=== PATIENT | male | born 1960 | race Caucasian/White ===

== ENCOUNTER → 2017-08-21 | Outpatient (CLI) | payer OTHER ==
[~2017-08-21] MED LIST: (None)15 GM EXT; CAND4; CEPH500; CIPR250; CLON.5 PO; HYDACE5; HYDACE5 PO; IBUP800 PO; LANS15EC; LOSA50 PO; LOSARTAN POTAS100 MG PO; META800 PO; NAPR550 PO; NEBI10 PO; NEBI5; OXYACE10 PO; PRAM.5; PRAM.5 PO; ROPI1; TAMS.4ER; TAMS.4ER PO; Zovirax200 MG PO; [UNRECOGNIZED DRUG - REMARK]; [UNRECOGNIZED DRUG - REMARK]
[2017-08-21 16:58] LABS: BASOPHILS ABSOLUTE AUTO 0.03 K/mm3 (0.00-0.23); BASOPHILS PERCENT AUTO 0 % (0-2); EOSINOPHILS ABSOLUTE AUTO 0.25 K/mm3 (0.00-0.68); EOSINOPHILS PERCENT AUTO 3 % (0-6); Hematocrit 39.1 % (37.0-53.0); Hemoglobin 12.7 g/dL (13.5-17.5); IMMATURE GRAN ABSOLUTE AUTO 0.09 K/mm3 (0.00-0.10); IMMATURE GRAN PERCENT AUTO 1 % (0-1); LYMPHOCYTES ABSOLUTE AUTO 1.69 K/mm3 (0.84-5.20); LYMPHOCYTES PERCENT AUTO 23 % (21-46); MONOCYTES ABSOLUTE AUTO 0.44 K/mm3 (0.16-1.47); MONOCYTES PERCENT AUTO 6 % (4-13); Mean Corpuscular HGB 29.3 pg (26.0-34.0); Mean Corpuscular HGB Conc 32.5 g/dL (31.5-36.5); Mean Corpuscular Volume 90 fL (80-100); Mean Platelet Volume 9.4 fL (9.1-12.4); NEUTROPHILS ABSOLUTE AUTO 4.89 K/mm3 (1.96-9.15); NEUTROPHILS PERCENT AUTO 66 % (41-73); Platelet Count 261 K/mm3 (150-400); RDW Coefficient Variation 13.2 % (11.7-14.2); RDW Standard Deviation 43.6 fL (35.1-46.3); Red Blood Cell Count 4.33 M/mm3 (4.30-5.90); White Blood Cell Count 7.39 K/mm3 (4.00-11.30)
[2017-08-21 17:32] LABS: Alanine Aminotransfer (ALT/SGP 40 U/L (12-78); Albumin, Blood 3.3 g/dL (3.4-5.0); Albumin/Globulin Ratio 0.7 (0.8-1.8); Alk Phos 89 U/L (50-136); Anion Gap 8 mmol/L (6-16); Aspartate Aminotrans (AST/SGOT 29 U/L (12-37); Bilirubin, Total 0.7 mg/dL (0.1-1.0); Blood Urea Nitrogen 16 mg/dL (8-24); Bun/Creatinine Ratio 16.6 (12.0-20.0); CO2, Blood 27 mmol/L (21-32); Calcium, Blood 9.3 mg/dL (8.5-10.1); Chloride, Blood 103 mmol/L (98-108); Creatinine, Blood 0.96 mg/dL (0.60-1.20); Globulin, Blood 4.8 g/dL (2.2-4.0); Glomerular Filtration Rate >60 (60-); Glucose, Blood 165 mg/dL (70-99); Potassium, Blood 3.7 mmol/L (3.5-5.5); Sodium, Blood 138 mmol/L (136-145); Total Protein, Blood 8.1 g/dL (6.4-8.2)
== END ==
LOC: LAB 16:30
PROVIDERS: Nurse Practitioner
DX: L03.115 Cellulitis of right lower limb (principal)
CPT/HCPCS: 80053; 85025

== ENCOUNTER 2017-09-04 21:04 | Emergency (ER) | payer OTHER ==
[~2017-09-04] VITALS: Ht 190.5 cm; Wt 131.5 kg
[~2017-09-04 21:04] MED LIST changes: -CEPH500; -CLON.5 PO; -LOSA50 PO; -LOSARTAN POTAS100 MG PO; -NEBI10 PO; -PRAM.5; -PRAM.5 PO; -TAMS.4ER PO
[2017-09-04 22:40] LABS: Source, Urine Catheter
[2017-09-04 22:48] LABS: Bilirubin, Urine Neg (Neg); Blood, Urine 2+ (Neg); Glucose Qualitative, Urine Neg (Neg); Ketones, Urine Neg (Neg); Leukocyte Esterase, Urine Neg (Neg); Nitrite, Urine Neg (Neg); Protein, Urine Neg (Neg); Specific Gravity, Urine 1.015 (1.003-1.022); Urobilinogen, Urine NORM (Normal)
[2017-09-04 22:50] LABS: Appearance, Urine Clear (Clear); Color, Urine Yellow (P-Yellow)
[2017-09-04 22:55] LABS: Amorphous Light (0-Heavy); Bacteria Not Seen /hpf; Red Blood Cells, Urine 0-2 /hpf (0-2); Squamous Epithelial Cells Not Seen /hpf (Few); White Blood Cells, Urine Not Seen /hpf (0-5)
[2018-01-16] MEDS ORDERED: NEBI10 PO (18:14)
[2018-01-16] MEDS ORDERED: LOSARTAN POTAS100 MG PO (18:14)
[2018-01-16] MEDS ORDERED: PRAM.5 PO (18:14)
[2018-01-20] MEDS ORDERED: NEBI10 PO (09:27)
[2018-01-20] MEDS ORDERED: LOSA50 PO (09:31)
[2018-01-20] MEDS ORDERED: PRAM.5 (09:41)
[2018-01-20] MEDS ORDERED: TAMS.4ER PO (09:44)
[2018-01-20] MEDS ORDERED: CEPH500 (09:45)
== END 2017-09-04 23:08 | disposition home or self-care (01) ==
LOC: ER 21:04
PROVIDERS: Physician Assistant
DX: R33.9 Retention of urine, unspecified (principal); Z88.1 Allergy status to other antibiotic agents; Z88.6 Allergy status to analgesic agent; Z79.899 Other long term (current) drug therapy
CPT/HCPCS: 51702; 51798; 81001; 99283

== ENCOUNTER 2017-09-11 00:11 | Day surgery (SDC) | payer OTHER ==
[2018-01-16] MEDS ORDERED: NEBI10 PO (18:14)
[2018-01-16] MEDS ORDERED: PRAM.5 PO (18:14)
[2018-01-16] MEDS ORDERED: LOSARTAN POTAS100 MG PO (18:14)
[2018-01-20] MEDS ORDERED: NEBI10 PO (09:27)
[2018-01-20] MEDS ORDERED: LOSA50 PO (09:31)
[2018-01-20] MEDS ORDERED: PRAM.5 (09:41)
[2018-01-20] MEDS ORDERED: TAMS.4ER PO (09:44)
[2018-01-20] MEDS ORDERED: CEPH500 (09:45)
== END 2017-09-11 15:53 | disposition home or self-care (01) ==
LOC: WOUND 00:11
DX: Z48.00 Encounter for change or removal of nonsurgical wound dressing (principal); L89.892 Pressure ulcer of other site, stage 2; R60.0 Localized edema; G25.81 Restless legs syndrome; I10 Essential (primary) hypertension; G47.33 Obstructive sleep apnea (adult) (pediatric); K76.9 Liver disease, unspecified; G60.9 Hereditary and idiopathic neuropathy, unspecified; I87.8 Other specified disorders of veins; Z88.6 Allergy status to analgesic agent; Z88.1 Allergy status to other antibiotic agents; Z88.8 Allergy status to other drugs, medicaments and biological substances
CPT/HCPCS: G0463

== ENCOUNTER 2017-09-17 00:46 | Day surgery (SDC) | payer OTHER | END 2017-09-17 22:55 | disposition home or self-care (01) | LOC: WOUND 00:46 | DX: L89.893 Pressure ulcer of other site, stage 3 (principal); I10 Essential (primary) hypertension; G47.33 Obstructive sleep apnea (adult) (pediatric); K76.9 Liver disease, unspecified; G60.9 Hereditary and idiopathic neuropathy, unspecified; I87.8 Other specified disorders of veins; R60.0 Localized edema | CPT/HCPCS: 87070; 87075; 87077; 87147; 87186; 87205; G0463 ==

== ENCOUNTER 2017-09-24 01:16 | Day surgery (SDC) | payer OTHER | END 2017-09-24 10:12 | disposition home or self-care (01) | LOC: WOUND 01:16 | PROC: 0HBMXZZ Excision of Right Foot Skin, External Approach (ICD-10-PCS; principal; 2017-09-24) | DX: L89.893 Pressure ulcer of other site, stage 3 (principal); I10 Essential (primary) hypertension; G47.33 Obstructive sleep apnea (adult) (pediatric); K76.9 Liver disease, unspecified; G60.9 Hereditary and idiopathic neuropathy, unspecified; I87.8 Other specified disorders of veins; R60.0 Localized edema | CPT/HCPCS: G0463 ==

== ENCOUNTER 2017-10-01 08:29 | Day surgery (SDC) | payer OTHER | END 2017-10-01 22:44 | disposition home or self-care (01) | LOC: WOUND 08:29 | PROC: 0HBMXZZ Excision of Right Foot Skin, External Approach (ICD-10-PCS; principal; 2017-10-01) | PROC: 2W1SX6Z Compression of Right Foot using Pressure Dressing (ICD-10-PCS; principal; 2017-10-01) | DX: L89.893 Pressure ulcer of other site, stage 3 (principal); I10 Essential (primary) hypertension; G47.33 Obstructive sleep apnea (adult) (pediatric); K76.9 Liver disease, unspecified; G60.9 Hereditary and idiopathic neuropathy, unspecified; I87.8 Other specified disorders of veins; R60.0 Localized edema | CPT/HCPCS: G0463 ==

== ENCOUNTER 2017-10-15 00:13 | Day surgery (SDC) | payer OTHER | END 2017-10-15 15:44 | disposition home or self-care (01) | LOC: WOUND 00:13 | PROC: 2W1SX6Z Compression of Right Foot using Pressure Dressing (ICD-10-PCS; principal; 2017-10-15) | PROC: 0HBMXZZ Excision of Right Foot Skin, External Approach (ICD-10-PCS; principal; 2017-10-15) | DX: L89.893 Pressure ulcer of other site, stage 3 (principal); I10 Essential (primary) hypertension; G47.33 Obstructive sleep apnea (adult) (pediatric); K76.9 Liver disease, unspecified; G60.9 Hereditary and idiopathic neuropathy, unspecified; I87.8 Other specified disorders of veins; R60.0 Localized edema | CPT/HCPCS: G0463 ==

== ENCOUNTER 2017-10-22 00:03 | Day surgery (SDC) | payer OTHER | END 2017-10-22 11:37 | disposition home or self-care (01) | LOC: WOUND 00:03 | PROC: 2W1SX6Z Compression of Right Foot using Pressure Dressing (ICD-10-PCS; principal; 2017-10-22) | DX: L89.893 Pressure ulcer of other site, stage 3 (principal); G47.33 Obstructive sleep apnea (adult) (pediatric); I10 Essential (primary) hypertension; K76.9 Liver disease, unspecified; G60.9 Hereditary and idiopathic neuropathy, unspecified; I87.8 Other specified disorders of veins; R60.0 Localized edema | CPT/HCPCS: G0463 ==

== ENCOUNTER 2017-10-29 08:45 | Day surgery (SDC) | payer OTHER | END 2017-10-29 11:24 | disposition home or self-care (01) | LOC: WOUND 08:45 | DX: Z48.00 Encounter for change or removal of nonsurgical wound dressing (principal); L89.892 Pressure ulcer of other site, stage 2; I10 Essential (primary) hypertension; G47.33 Obstructive sleep apnea (adult) (pediatric); K76.9 Liver disease, unspecified; G60.9 Hereditary and idiopathic neuropathy, unspecified; I87.8 Other specified disorders of veins; R60.0 Localized edema | CPT/HCPCS: G0463 ==

== ENCOUNTER 2017-11-02 07:36 | Day surgery (SDC) | payer OTHER | END 2017-11-02 22:56 | disposition home or self-care (01) | LOC: WOUND 07:36 | PROC: 0HBMXZZ Excision of Right Foot Skin, External Approach (ICD-10-PCS; principal; 2017-11-02) | DX: L89.893 Pressure ulcer of other site, stage 3 (principal); G62.9 Polyneuropathy, unspecified; I10 Essential (primary) hypertension; G47.33 Obstructive sleep apnea (adult) (pediatric); K76.9 Liver disease, unspecified; G60.9 Hereditary and idiopathic neuropathy, unspecified; I87.8 Other specified disorders of veins; R60.0 Localized edema | CPT/HCPCS: G0463 ==

== ENCOUNTER 2017-11-09 08:41 | Day surgery (SDC) | payer OTHER | END 2017-11-09 11:23 | disposition home or self-care (01) | LOC: WOUND 08:41 | PROC: 2W1SX6Z Compression of Right Foot using Pressure Dressing (ICD-10-PCS; principal; 2017-11-09) | DX: L89.893 Pressure ulcer of other site, stage 3 (principal); I10 Essential (primary) hypertension; G47.33 Obstructive sleep apnea (adult) (pediatric); K76.9 Liver disease, unspecified; G60.9 Hereditary and idiopathic neuropathy, unspecified; I87.8 Other specified disorders of veins; R60.0 Localized edema ==

== ENCOUNTER 2018-06-06 07:10 | Emergency (ER) | payer MEDICAID ==
[~2018-06-06] VITALS: Ht 190.5 cm; Wt 136.1 kg
[~2018-06-06 07:10] MED LIST changes: +CEPH500; +LOSA50 PO; +LOSARTAN POTAS100 MG PO; +NEBI10 PO; +PRAM.5; +PRAM.5 PO; +TAMS.4ER PO
[2018-06-06] MEDS ORDERED: CLON.5 PO (07:29)
[2018-06-06 08:30] LABS: Source, Urine Voided
[2018-06-06 08:34] LABS: Bilirubin, Urine Neg (Neg); Blood, Urine 5+ (Neg); Glucose Qualitative, Urine Neg (Neg); Ketones, Urine Neg (Neg); Leukocyte Esterase, Urine Neg (Neg); Nitrite, Urine Neg (Neg); Protein, Urine Neg (Neg); Urobilinogen, Urine NORM (Normal)
[2018-06-06 08:43] LABS: Appearance, Urine Clear (Clear); Color, Urine Yellow (P-Yellow)
[2018-06-06 08:44] LABS: White Blood Cells, Urine 0-2 /hpf (0-5)
[2018-06-06 08:45] LABS: Red Blood Cells, Urine 25-50 /hpf (0-2)
[2018-06-06 08:47] LABS: Bacteria Not Seen /hpf; Squamous Epithelial Cells Not Seen /hpf (Few)
== END 2018-06-06 10:20 | disposition home or self-care (01) ==
LOC: ER 07:10
PROVIDERS: Emergency Medicine
DX: N40.1 Benign prostatic hyperplasia with lower urinary tract symptoms (principal); R33.8 Other retention of urine; I10 Essential (primary) hypertension; Z88.5 Allergy status to narcotic agent; Z88.6 Allergy status to analgesic agent; Z88.1 Allergy status to other antibiotic agents; Z79.899 Other long term (current) drug therapy
CPT/HCPCS: 51702; 81001; 99283

== ENCOUNTER → 2018-09-22 | Outpatient (CLI) | payer SELFPAY ==
[~2018-09-22] MED LIST changes: +CLON.5 PO
== END | disposition home or self-care (01) ==
LOC: LAB 16:35 → LAB SHORT 16:35
DX: L97.519 Non-pressure chronic ulcer of other part of right foot with unspecified severity (principal); I87.2 Venous insufficiency (chronic) (peripheral); L08.9 Local infection of the skin and subcutaneous tissue, unspecified; R60.0 Localized edema
CPT/HCPCS: 87070; 87077; 87147; 87186; 87205

== ENCOUNTER → 2019-01-12 | Outpatient (CLI) | payer OTHER ==
[~2019-01-12] MED LIST changes: +Bactrim Ds Tab1 EACH PO; +CLIN300 PO; -PRAM.5
== END | disposition home or self-care (01) ==
LOC: LAB SHORT 18:25 → LAB 18:25
DX: D48.5 Neoplasm of uncertain behavior of skin (principal)
CPT/HCPCS: 87015; 87071; 87075; 87077; 87102; 87106; 87116; 87186; 87205; 87206

== ENCOUNTER 2019-03-25 15:46 | Day surgery (SDC) | payer OTHER ==
[~2019-03-25 15:46] MED LIST changes: -Bactrim Ds Tab1 EACH PO; -CLIN300 PO
[2019-03-25] MEDS ORDERED: CLIN300 PO (16:11)
== END 2019-03-25 16:36 | disposition home or self-care (01) ==
LOC: ATC 15:46
DX: M86.371 Chronic multifocal osteomyelitis, right ankle and foot (principal); L97.515 Non-pressure chronic ulcer of other part of right foot with muscle involvement without evidence of necrosis; I10 Essential (primary) hypertension; Z87.891 Personal history of nicotine dependence; Z79.899 Other long term (current) drug therapy; Z88.8 Allergy status to other drugs, medicaments and biological substances; Z88.5 Allergy status to narcotic agent; Z88.6 Allergy status to analgesic agent
CPT/HCPCS: 87070; 87077; 87147; 87186; 87205; 96365; J0696

== ENCOUNTER 2019-03-26 01:00 | Day surgery (SDC) | payer OTHER ==
[~2019-03-26 01:00] MED LIST changes: +CLIN300 PO
[2019-03-27] MEDS ORDERED: Bactrim Ds Tab1 EACH PO (19:14)
== END 2019-03-26 16:02 | disposition home or self-care (01) ==
LOC: ATC 01:00
DX: M86.371 Chronic multifocal osteomyelitis, right ankle and foot (principal); L97.515 Non-pressure chronic ulcer of other part of right foot with muscle involvement without evidence of necrosis; I10 Essential (primary) hypertension; Z87.891 Personal history of nicotine dependence; Z79.899 Other long term (current) drug therapy; Z88.8 Allergy status to other drugs, medicaments and biological substances; Z88.1 Allergy status to other antibiotic agents; Z88.5 Allergy status to narcotic agent
CPT/HCPCS: 96365; J0696

== ENCOUNTER 2019-03-27 01:10 | Day surgery (SDC) | payer OTHER ==
[2019-03-27] MEDS ORDERED: Bactrim Ds Tab1 EACH PO (19:14)
--- NOTE | 2019-03-27 19:17 | NUR ---
PT REPORTS RESTLESS LEGS, NOT RELIEVED BY ANY "OF THE MEDS IM TAKING". UP AMB IN ROOM, REPORTS THIS IS WHAT HELPS THE MOST. CALL LIGHT WITHIN REACH.
== END 2019-03-27 22:38 | disposition home or self-care (01) ==
LOC: ATC 01:10
DX: M86.371 Chronic multifocal osteomyelitis, right ankle and foot (principal); L97.515 Non-pressure chronic ulcer of other part of right foot with muscle involvement without evidence of necrosis; I10 Essential (primary) hypertension; R73.03 Prediabetes; Z87.891 Personal history of nicotine dependence; Z79.899 Other long term (current) drug therapy; Z79.84 Long term (current) use of oral hypoglycemic drugs; Z88.1 Allergy status to other antibiotic agents; Z88.5 Allergy status to narcotic agent; Z88.8 Allergy status to other drugs, medicaments and biological substances
CPT/HCPCS: 96365; J0696

== ENCOUNTER 2019-03-29 16:20 | Emergency (ER) | payer OTHER ==
[~2019-03-29] VITALS: Ht 190.5 cm; Wt 133.8 kg
[~2019-03-29 16:20] MED LIST changes: +Bactrim Ds Tab1 EACH PO
[2019-03-29 17:16] LABS: BASOPHILS ABSOLUTE AUTO 0.06 K/mm3 (0.00-0.23); BASOPHILS PERCENT AUTO 1 % (0-2); EOSINOPHILS ABSOLUTE AUTO 0.23 K/mm3 (0.00-0.68); EOSINOPHILS PERCENT AUTO 3 % (0-6); Hematocrit 42.2 % (37.0-53.0); Hemoglobin 13.9 g/dL (13.5-17.5); IMMATURE GRAN ABSOLUTE AUTO 0.14 K/mm3 (0.00-0.10); IMMATURE GRAN PERCENT AUTO 2 % (0-1); LYMPHOCYTES ABSOLUTE AUTO 2.11 K/mm3 (0.84-5.20); LYMPHOCYTES PERCENT AUTO 25 % (21-46); MONOCYTES ABSOLUTE AUTO 0.51 K/mm3 (0.16-1.47); MONOCYTES PERCENT AUTO 6 % (4-13); Mean Corpuscular HGB 30.1 pg (26.0-34.0); Mean Corpuscular HGB Conc 32.9 g/dL (31.5-36.5); Mean Corpuscular Volume 91 fL (80-100); Mean Platelet Volume 9.3 fL (9.1-12.4); NEUTROPHILS ABSOLUTE AUTO 5.45 K/mm3 (1.96-9.15); NEUTROPHILS PERCENT AUTO 64 % (41-73); Platelet Count 323 K/mm3 (150-400); RDW Coefficient Variation 13.5 % (11.7-14.2); RDW Standard Deviation 45.4 fL (35.1-46.3); Red Blood Cell Count 4.62 M/mm3 (4.30-5.90)
[2019-03-29 18:46] LABS: Anion Gap 2 mmol/L (6-16); Blood Urea Nitrogen 15 mg/dL (8-24); Bun/Creatinine Ratio 13.3 (12.0-20.0); CO2, Blood 29 mmol/L (21-32); Calcium, Blood 9.2 mg/dL (8.5-10.1); Chloride, Blood 105 mmol/L (98-108); Creatinine, Blood 1.13 mg/dL (0.60-1.20); Glomerular Filtration Rate >60 (60-); Glucose, Blood 99 mg/dL (70-99); Potassium, Blood 4.2 mmol/L (3.5-5.5); Sodium, Blood 136 mmol/L (136-145)
== END 2019-03-29 21:46 | disposition home or self-care (01) ==
LOC: ER 16:20
PROVIDERS: Physician Assistant
DX: L89.619 Pressure ulcer of right heel, unspecified stage (principal); L03.115 Cellulitis of right lower limb; M86.9 Osteomyelitis, unspecified; I10 Essential (primary) hypertension; Z88.8 Allergy status to other drugs, medicaments and biological substances; Z88.1 Allergy status to other antibiotic agents; Z79.899 Other long term (current) drug therapy
CPT/HCPCS: 36415; 73630; 80048; 85025; 99283-25

== ENCOUNTER → 2019-04-04 | Outpatient (CLI) | payer OTHER | END | disposition home or self-care (01) | LOC: PLD 07:32 → LAB SHORT 07:32 | DX: B99.9 Unspecified infectious disease (principal); E11.621 Type 2 diabetes mellitus with foot ulcer; E11.65 Type 2 diabetes mellitus with hyperglycemia; L03.115 Cellulitis of right lower limb; L97.519 Non-pressure chronic ulcer of other part of right foot with unspecified severity | CPT/HCPCS: 87070; 87075; 87077; 87186; 87205; 88305; 88311 ==

== ENCOUNTER → 2020-05-19 | Outpatient (CLI) | payer OTHER ==
[~2020-05-19] MED LIST changes: +CEFP200 PO; +Norco 5-325 Ta1 EACH PO
== END | disposition home or self-care (01) ==
LOC: LAB 17:00
DX: N40.1 Benign prostatic hyperplasia with lower urinary tract symptoms (principal); R33.8 Other retention of urine
CPT/HCPCS: 87086

== ENCOUNTER 2020-07-16 19:34 | Emergency (ER) | payer OTHER ==
[~2020-07-16] VITALS: Ht 190.5 cm; Wt 133.8 kg
[~2020-07-16 19:34] MED LIST changes: -CEFP200 PO; -Norco 5-325 Ta1 EACH PO
[2020-07-16 20:49] LABS: Source, Urine Catheter
[2020-07-16 20:54] LABS: Appearance, Urine Cloudy (Clear); Bilirubin, Urine Neg (Neg); Blood, Urine 3+ (Neg); Color, Urine Yellow (P-Yellow); Glucose Qualitative, Urine Neg (Neg); Ketones, Urine Neg (Neg); Leukocyte Esterase, Urine 3+ (Neg); Nitrite, Urine Neg (Neg); Protein, Urine 2+ (Neg); Specific Gravity, Urine 1.015 (1.003-1.022); Urobilinogen, Urine NORM (Normal)
[2020-07-16 21:02] LABS: Bacteria Many /hpf; Squamous Epithelial Cells Not Seen /hpf (Few); White Blood Cells, Urine 50-100 /hpf (0-5)
[2020-07-16] MEDS ORDERED: CEFP200 PO (21:45)
== END 2020-07-16 21:45 | disposition home or self-care (01) ==
LOC: ER 19:34
PROVIDERS: Physician Assistant
DX: N39.0 Urinary tract infection, site not specified (principal); N40.0 Benign prostatic hyperplasia without lower urinary tract symptoms; I10 Essential (primary) hypertension; Z88.6 Allergy status to analgesic agent; Z88.8 Allergy status to other drugs, medicaments and biological substances; Z88.1 Allergy status to other antibiotic agents; Z79.899 Other long term (current) drug therapy
CPT/HCPCS: 51702; 81001; 87077; 87086; 87186; 99283-25; A9270

== ENCOUNTER 2020-12-10 10:22 | Emergency (ER) | payer OTHER ==
[~2020-12-10] VITALS: Ht 190.5 cm; Wt 133.8 kg
[~2020-12-10 10:22] MED LIST changes: +CEFP200 PO
[2020-12-10 11:16] LABS: Source, Urine Catheter
[2020-12-10 11:26] LABS: Bilirubin, Urine Neg (Neg); Blood, Urine 5+ (Neg); Glucose Qualitative, Urine 2+ (Neg); Ketones, Urine Neg (Neg); Leukocyte Esterase, Urine 1+ (Neg); Nitrite, Urine Neg (Neg); Protein, Urine 2+ (Neg); Urobilinogen, Urine NORM (Normal)
[2020-12-10 11:33] LABS: Appearance, Urine Hazy (Clear); Color, Urine Red (P-Yellow)
[2020-12-10 11:34] LABS: Bacteria Few /hpf; Squamous Epithelial Cells Not Seen /hpf (Few); White Blood Cells, Urine TNTC /hpf (0-5)
[2020-12-10] MEDS ORDERED: Norco 5-325 Ta1 EACH PO (13:32)
== END 2020-12-10 14:18 | disposition home or self-care (01) ==
LOC: ER 10:22
PROVIDERS: Physician Assistant
DX: M25.551 Pain in right hip (principal); I10 Essential (primary) hypertension; Z88.5 Allergy status to narcotic agent; Z88.2 Allergy status to sulfonamides; Z88.1 Allergy status to other antibiotic agents; Z79.899 Other long term (current) drug therapy
CPT/HCPCS: 51702; 51798; 73502; 74176; 81001; 87086; 96374-59; 99284-25; J1885

== ENCOUNTER → 2020-12-30 | Outpatient (CLI) | payer OTHER ==
[~2020-12-30] MED LIST changes: +Norco 5-325 Ta1 EACH PO
[2020-12-30 17:06] LABS: BASOPHILS ABSOLUTE AUTO 0.05 K/mm3 (0.00-0.23); BASOPHILS PERCENT AUTO 1 % (0-2); EOSINOPHILS ABSOLUTE AUTO 0.18 K/mm3 (0.00-0.68); EOSINOPHILS PERCENT AUTO 3 % (0-6); Hematocrit 43.3 % (37.0-53.0); Hemoglobin 14.4 g/dL (13.5-17.5); IMMATURE GRAN ABSOLUTE AUTO 0.01 K/mm3 (0.00-0.10); IMMATURE GRAN PERCENT AUTO 0 % (0-1); LYMPHOCYTES ABSOLUTE AUTO 2.18 K/mm3 (0.84-5.20); LYMPHOCYTES PERCENT AUTO 31 % (21-46); MONOCYTES ABSOLUTE AUTO 0.48 K/mm3 (0.16-1.47); MONOCYTES PERCENT AUTO 7 % (4-13); Mean Corpuscular HGB 30.3 pg (26.0-34.0); Mean Corpuscular HGB Conc 33.3 g/dL (31.5-36.5); Mean Corpuscular Volume 91 fL (80-100); Mean Platelet Volume 9.9 fL (9.1-12.4); NEUTROPHILS ABSOLUTE AUTO 4.14 K/mm3 (1.96-9.15); NEUTROPHILS PERCENT AUTO 59 % (41-73); Platelet Count 261 K/mm3 (150-400); RDW Coefficient Variation 13.5 % (11.7-14.2); RDW Standard Deviation 45.1 fL (35.1-46.3); Red Blood Cell Count 4.76 M/mm3 (4.30-5.90); White Blood Cell Count 7.04 K/mm3 (4.00-11.30)
[2020-12-30 17:27] LABS: Anion Gap 4 mmol/L (6-16); Blood Urea Nitrogen 18 mg/dL (8-24); Bun/Creatinine Ratio 21.1 (12.0-20.0); CO2, Blood 27 mmol/L (21-32); Calcium, Blood 9.2 mg/dL (8.5-10.1); Chloride, Blood 106 mmol/L (98-108); Creatinine, Blood 0.85 mg/dL (0.60-1.20); Glomerular Filtration Rate >60 (60-); Glucose, Blood 143 mg/dL (70-99); Potassium, Blood 3.6 mmol/L (3.5-5.5); Sodium, Blood 137 mmol/L (136-145)
== END | disposition home or self-care (01) ==
LOC: LAB 16:00 → LAB SHORT 16:00
PROVIDERS: Physician Assistant
DX: Z01.818 Encounter for other preprocedural examination (principal); S90.821A Blister (nonthermal), right foot, initial encounter; T14.8XXD Other injury of unspecified body region, subsequent encounter; M20.42 Other hammer toe(s) (acquired), left foot; M20.41 Other hammer toe(s) (acquired), right foot; I10 Essential (primary) hypertension; L97.513 Non-pressure chronic ulcer of other part of right foot with necrosis of muscle
CPT/HCPCS: 80048; 85025

== ENCOUNTER → 2020-12-31 | Outpatient (CLI) | payer OTHER | LOC: LAB 13:16 → LAB SHORT 13:16 | DX: L97.514 Non-pressure chronic ulcer of other part of right foot with necrosis of bone (principal) | CPT/HCPCS: 88307 ==

== ENCOUNTER 2021-04-24 06:35 | Emergency (ER) | payer OTHER ==
[~2021-04-24] VITALS: Ht 190.5 cm; Wt 133.8 kg
[2021-04-24 07:55] LABS: BASOPHILS ABSOLUTE AUTO 0.04 K/mm3 (0.00-0.23); BASOPHILS PERCENT AUTO 1 % (0-2); EOSINOPHILS ABSOLUTE AUTO 0.09 K/mm3 (0.00-0.68); EOSINOPHILS PERCENT AUTO 1 % (0-6); Hematocrit 43.9 % (37.0-53.0); Hemoglobin 15.1 g/dL (13.5-17.5); IMMATURE GRAN ABSOLUTE AUTO 0.03 K/mm3 (0.00-0.10); IMMATURE GRAN PERCENT AUTO 0 % (0-1); LYMPHOCYTES ABSOLUTE AUTO 1.17 K/mm3 (0.84-5.20); LYMPHOCYTES PERCENT AUTO 17 % (21-46); MONOCYTES ABSOLUTE AUTO 0.36 K/mm3 (0.16-1.47); MONOCYTES PERCENT AUTO 5 % (4-13); Mean Corpuscular HGB 30.6 pg (26.0-34.0); Mean Corpuscular HGB Conc 34.4 g/dL (31.5-36.5); Mean Corpuscular Volume 89 fL (80-100); Mean Platelet Volume 9.1 fL (9.1-12.4); NEUTROPHILS ABSOLUTE AUTO 5.07 K/mm3 (1.96-9.15); NEUTROPHILS PERCENT AUTO 75 % (41-73); Platelet Count 222 K/mm3 (150-400); RDW Coefficient Variation 13.1 % (11.7-14.2); RDW Standard Deviation 42.3 fL (35.1-46.3); Red Blood Cell Count 4.94 M/mm3 (4.30-5.90); White Blood Cell Count 6.76 K/mm3 (4.00-11.30)
[2021-04-24 07:57] LABS: Source, Urine Catheter
[2021-04-24 07:59] LABS: Appearance, Urine Clear (Clear); Bilirubin, Urine Neg (Neg); Blood, Urine 3+ (Neg); Color, Urine Yellow (P-Yellow); Glucose Qualitative, Urine Neg (Neg); Ketones, Urine Neg (Neg); Leukocyte Esterase, Urine Neg (Neg); Nitrite, Urine Neg (Neg); Protein, Urine 1+ (Neg); Urobilinogen, Urine NORM (Normal)
[2021-04-24 08:07] LABS: White Blood Cells, Urine 0-2 /hpf (0-5)
[2021-04-24 08:08] LABS: Bacteria Not Seen /hpf; Mucus Light (0-Heavy); Squamous Epithelial Cells Rare /hpf (Few)
[2021-04-24 08:17] LABS: Alanine Aminotransfer (ALT/SGP 44 U/L (12-78); Albumin, Blood 3.5 g/dL (3.4-5.0); Albumin/Globulin Ratio 0.9 (0.8-1.8); Alk Phos 75 U/L (50-136); Anion Gap 7 mmol/L (6-16); Aspartate Aminotrans (AST/SGOT 30 U/L (12-37); Bilirubin, Total 1.1 mg/dL (0.1-1.0); Blood Urea Nitrogen 17 mg/dL (8-24); Bun/Creatinine Ratio 20.9 (12.0-20.0); CO2, Blood 27 mmol/L (21-32); Calcium, Blood 9.6 mg/dL (8.5-10.1); Chloride, Blood 101 mmol/L (98-108); Creatinine, Blood 0.82 mg/dL (0.60-1.20); Glomerular Filtration Rate >60 (60-); Glucose, Blood 171 mg/dL (70-99); Potassium, Blood 3.6 mmol/L (3.5-5.5); Sodium, Blood 135 mmol/L (136-145); Total Protein, Blood 7.5 g/dL (6.4-8.2)
[2021-04-24] MEDS ORDERED: Bactrim Ds Tab1 EACH PO (09:04)
== END 2021-04-24 09:33 | disposition home or self-care (01) ==
LOC: ER 06:35
PROVIDERS: Emergency Medicine
DX: R33.9 Retention of urine, unspecified (principal); Z88.1 Allergy status to other antibiotic agents; Z88.6 Allergy status to analgesic agent; Z88.8 Allergy status to other drugs, medicaments and biological substances; Z79.899 Other long term (current) drug therapy
CPT/HCPCS: 36415; 51702; 80053; 81001; 85025; 99283-25; A9270

== ENCOUNTER 2021-05-24 01:36 | Day surgery (SDC) | payer OTHER | END 2021-05-24 12:00 | disposition home or self-care (01) | LOC: WOUND 01:36 | DX: L89.894 Pressure ulcer of other site, stage 4 (principal); L97.512 Non-pressure chronic ulcer of other part of right foot with fat layer exposed; T14.8XXD Other injury of unspecified body region, subsequent encounter; S98.131D Complete traumatic amputation of one right lesser toe, subsequent encounter; X58.XXXD Exposure to other specified factors, subsequent encounter; I70.213 Atherosclerosis of native arteries of extremities with intermittent claudication, bilateral legs; M21.371 Foot drop, right foot; I87.2 Venous insufficiency (chronic) (peripheral); I87.311 Chronic venous hypertension (idiopathic) with ulcer of right lower extremity; Z88.1 Allergy status to other antibiotic agents; Z88.6 Allergy status to analgesic agent; Z88.8 Allergy status to other drugs, medicaments and biological substances | CPT/HCPCS: A9270; G0463 ==

== ENCOUNTER 2021-06-07 04:55 | Day surgery (SDC) | payer OTHER | END 2021-06-07 23:55 | disposition home or self-care (01) | LOC: WOUND 04:55 | DX: L89.894 Pressure ulcer of other site, stage 4 (principal); T14.8XXD Other injury of unspecified body region, subsequent encounter; S98.131D Complete traumatic amputation of one right lesser toe, subsequent encounter; X58.XXXD Exposure to other specified factors, subsequent encounter; I70.213 Atherosclerosis of native arteries of extremities with intermittent claudication, bilateral legs; M21.371 Foot drop, right foot; M21.379 Foot drop, unspecified foot; M79.671 Pain in right foot; I87.2 Venous insufficiency (chronic) (peripheral); I87.311 Chronic venous hypertension (idiopathic) with ulcer of right lower extremity | CPT/HCPCS: A9270; G0463 ==

== ENCOUNTER 2021-09-18 08:57 | Emergency (ER) | payer OTHER ==
[~2021-09-18] VITALS: Ht 190.5 cm; Wt 131.0 kg
[2021-09-18 09:50] LABS: Source, Urine Foley catheter
[2021-09-18 09:56] LABS: Bilirubin, Urine Neg (Neg); Blood, Urine 3+ (Neg); Glucose Qualitative, Urine Neg (Neg); Ketones, Urine Neg (Neg); Leukocyte Esterase, Urine Neg (Neg); Nitrite, Urine Neg (Neg); Protein, Urine Neg (Neg); Specific Gravity, Urine 1.015 (1.003-1.022); Urobilinogen, Urine NORM (Normal)
[2021-09-18 10:28] LABS: BASOPHILS ABSOLUTE AUTO 0.04 K/mm3 (0.00-0.23); BASOPHILS PERCENT AUTO 1 % (0-2); EOSINOPHILS ABSOLUTE AUTO 0.07 K/mm3 (0.00-0.68); EOSINOPHILS PERCENT AUTO 1 % (0-6); Hemoglobin 14.8 g/dL (13.5-17.5); IMMATURE GRAN ABSOLUTE AUTO 0.02 K/mm3 (0.00-0.10); IMMATURE GRAN PERCENT AUTO 0 % (0-1); LYMPHOCYTES ABSOLUTE AUTO 1.05 K/mm3 (0.84-5.20); LYMPHOCYTES PERCENT AUTO 14 % (21-46); MONOCYTES ABSOLUTE AUTO 0.39 K/mm3 (0.16-1.47); MONOCYTES PERCENT AUTO 5 % (4-13); Mean Corpuscular HGB 30.3 pg (26.0-34.0); Mean Corpuscular HGB Conc 33.6 g/dL (31.5-36.5); Mean Corpuscular Volume 90 fL (80-100); Mean Platelet Volume 9.1 fL (9.1-12.4); NEUTROPHILS ABSOLUTE AUTO 6.09 K/mm3 (1.96-9.15); NEUTROPHILS PERCENT AUTO 80 % (41-73); Platelet Count 272 K/mm3 (150-400); RDW Coefficient Variation 12.5 % (11.7-14.2); RDW Standard Deviation 41.2 fL (35.1-46.3); Red Blood Cell Count 4.89 M/mm3 (4.30-5.90); White Blood Cell Count 7.66 K/mm3 (4.00-11.30)
[2021-09-18 10:37] LABS: Appearance, Urine Clear (Clear); Color, Urine Pale Yellow (P-Yellow)
[2021-09-18 10:39] LABS: Bacteria Rare /hpf; Mucus Light (0-Heavy); Squamous Epithelial Cells Not Seen /hpf (Few); White Blood Cells, Urine 0-2 /hpf (0-5)
[2021-09-18 11:58] LABS: Alanine Aminotransfer (ALT/SGP 28 U/L (12-78); Albumin, Blood 3.5 g/dL (3.4-5.0); Albumin/Globulin Ratio 0.8 (0.8-1.8); Alk Phos 75 U/L (50-136); Anion Gap 8 mmol/L (6-16); Aspartate Aminotrans (AST/SGOT 20 U/L (12-37); Bilirubin, Total 0.8 mg/dL (0.1-1.0); Blood Urea Nitrogen 13 mg/dL (8-24); Bun/Creatinine Ratio 15.3 (12.0-20.0); CO2, Blood 28 mmol/L (21-32); Calcium, Blood 9.4 mg/dL (8.5-10.1); Chloride, Blood 102 mmol/L (98-108); Creatinine, Blood 0.85 mg/dL (0.60-1.20); Globulin, Blood 4.6 g/dL (2.2-4.0); Glomerular Filtration Rate >60 (60-); Glucose, Blood 190 mg/dL (70-99); Potassium, Blood 3.5 mmol/L (3.5-5.5); Sodium, Blood 138 mmol/L (136-145); Total Protein, Blood 8.1 g/dL (6.4-8.2)
[2021-09-19] MEDS ORDERED: VANCOMYCIN HCL1 G1 IV (15:55)
== END 2021-09-18 16:02 | disposition home or self-care (01) ==
LOC: ER 08:57
PROVIDERS: Emergency Medicine
DX: R33.9 Retention of urine, unspecified (principal); E11.621 Type 2 diabetes mellitus with foot ulcer; L97.519 Non-pressure chronic ulcer of other part of right foot with unspecified severity; I10 Essential (primary) hypertension; Z79.899 Other long term (current) drug therapy
CPT/HCPCS: 36415; 51702; 51798; 73620; 80053; 81001; 85025; 96365; 96366; 99283-25; J3370; J7050

== ENCOUNTER 2021-09-19 13:14 | Day surgery (SDC) | payer OTHER ==
[~2021-09-19] VITALS: Ht 190.5 cm; Wt 131.1 kg
[2021-09-19] MEDS ORDERED: VANCOMYCIN HCL1 G1 IV (15:55)
== END 2021-09-19 17:40 | disposition home or self-care (01) ==
LOC: ATC 13:14
DX: E11.69 Type 2 diabetes mellitus with other specified complication (principal); M86.671 Other chronic osteomyelitis, right ankle and foot; E11.621 Type 2 diabetes mellitus with foot ulcer; L97.514 Non-pressure chronic ulcer of other part of right foot with necrosis of bone; L08.9 Local infection of the skin and subcutaneous tissue, unspecified; T14.8XXD Other injury of unspecified body region, subsequent encounter; I11.9 Hypertensive heart disease without heart failure; E11.51 Type 2 diabetes mellitus with diabetic peripheral angiopathy without gangrene; I70.213 Atherosclerosis of native arteries of extremities with intermittent claudication, bilateral legs; Z87.891 Personal history of nicotine dependence; Z88.8 Allergy status to other drugs, medicaments and biological substances; Z88.1 Allergy status to other antibiotic agents
CPT/HCPCS: 96365; 96366; C1751; J3370; J7050

== ENCOUNTER 2021-09-20 00:27 | Day surgery (SDC) | payer OTHER ==
[~2021-09-20] VITALS: Wt 131.5 kg
[~2021-09-20 00:27] MED LIST changes: +VANCOMYCIN HCL1 G1 IV
== END 2021-09-20 18:00 | disposition home or self-care (01) ==
LOC: ATC 00:27
DX: E11.69 Type 2 diabetes mellitus with other specified complication (principal); M86.671 Other chronic osteomyelitis, right ankle and foot; L08.9 Local infection of the skin and subcutaneous tissue, unspecified; T14.8XXD Other injury of unspecified body region, subsequent encounter; E11.621 Type 2 diabetes mellitus with foot ulcer; L97.514 Non-pressure chronic ulcer of other part of right foot with necrosis of bone; I10 Essential (primary) hypertension; Z88.8 Allergy status to other drugs, medicaments and biological substances; Z87.891 Personal history of nicotine dependence
CPT/HCPCS: J3370; J7050

== ENCOUNTER 2021-09-21 07:23 | Day surgery (SDC) | payer OTHER ==
[2021-09-21 08:06] LABS: Creatinine, Blood 0.99 mg/dL (0.60-1.20); Vancomycin, Trough 12.4 ug/mL (5.0-10.0)
--- NOTE | 2021-09-21 18:06 | NUR ---
CELIA COMPLETED AT 1749. MIDLINE FLUSHED + SALINE LOCKED. PT DENIED FURTHER NEEDS. WALKED OUT OF ROOM AT 1750.
== END 2021-09-21 17:50 | disposition home or self-care (01) ==
LOC: ATC 07:23
PROVIDERS: Student in an Organized Health Care Education/Training Program
DX: L08.9 Local infection of the skin and subcutaneous tissue, unspecified (principal); M86.671 Other chronic osteomyelitis, right ankle and foot; T14.8XXD Other injury of unspecified body region, subsequent encounter; E11.621 Type 2 diabetes mellitus with foot ulcer; L97.514 Non-pressure chronic ulcer of other part of right foot with necrosis of bone
CPT/HCPCS: 80202; 82565; J3370; J7050

== ENCOUNTER 2021-09-22 07:34 | Day surgery (SDC) | payer OTHER ==
--- NOTE | 2021-09-22 18:15 | NUR ---
DISCHARGED PT IV ABX COMPLETED AT 1809. HTN NOTED, PT REPORTING HE DID NOT TAKE HIS AM BP MEDS, ENCOURAGED COOPERATION WITH MEDICATION REGIMENT PER ORDERS. MIDLINE IV TO LUE FLUSHED WITH 20cc NS, STERILE CAP PLACED WITH NEW STOCKING TO HOLD IV LINE IN PLACE. PT HAD QUESTIONS REGARDING NEW ABX, PT ENCOURAGED TO CALL ATC UPON OPENING IN THE AM FOR CLARIFICATION. PT WHEELED OUT OF ROOM VIA WHEELCHAIR REPORTING INCREASED KNEE PAIN THIS PM BY AT 1812.
[2021-09-23] MEDS ORDERED: CUBICIN RF500 M1 IV (08:37)
== END 2021-09-22 18:13 | disposition home or self-care (01) ==
LOC: ATC 07:34
DX: E11.69 Type 2 diabetes mellitus with other specified complication (principal); M86.671 Other chronic osteomyelitis, right ankle and foot; L08.9 Local infection of the skin and subcutaneous tissue, unspecified; E11.621 Type 2 diabetes mellitus with foot ulcer; L97.514 Non-pressure chronic ulcer of other part of right foot with necrosis of bone; T14.8XXD Other injury of unspecified body region, subsequent encounter
CPT/HCPCS: J3370; J7050

== ENCOUNTER 2021-09-23 01:52 | Day surgery (SDC) | payer OTHER ==
[2021-09-23] MEDS ORDERED: CUBICIN RF500 M1 IV (08:37)
== END 2021-09-23 08:56 | disposition home or self-care (01) ==
LOC: ATC 01:52
DX: E11.69 Type 2 diabetes mellitus with other specified complication (principal); M86.671 Other chronic osteomyelitis, right ankle and foot; L08.9 Local infection of the skin and subcutaneous tissue, unspecified; T14.8XXD Other injury of unspecified body region, subsequent encounter; E11.621 Type 2 diabetes mellitus with foot ulcer; L97.514 Non-pressure chronic ulcer of other part of right foot with necrosis of bone
CPT/HCPCS: J0878

== ENCOUNTER 2021-09-25 01:23 | Day surgery (SDC) | payer OTHER ==
[~2021-09-25 01:23] MED LIST changes: +CUBICIN RF500 M1 IV
== END 2021-09-25 08:30 | disposition home or self-care (01) ==
LOC: ATC 01:23
DX: E11.69 Type 2 diabetes mellitus with other specified complication (principal); M86.671 Other chronic osteomyelitis, right ankle and foot; L08.9 Local infection of the skin and subcutaneous tissue, unspecified; T14.8XXD Other injury of unspecified body region, subsequent encounter; E11.621 Type 2 diabetes mellitus with foot ulcer; L97.514 Non-pressure chronic ulcer of other part of right foot with necrosis of bone
CPT/HCPCS: 96365; J0878

== ENCOUNTER 2021-09-26 00:58 | Day surgery (SDC) | payer OTHER | END 2021-09-26 09:29 | disposition home or self-care (01) | LOC: ATC 00:58 | DX: E11.69 Type 2 diabetes mellitus with other specified complication (principal); M86.671 Other chronic osteomyelitis, right ankle and foot; E11.621 Type 2 diabetes mellitus with foot ulcer; L97.514 Non-pressure chronic ulcer of other part of right foot with necrosis of bone; L08.9 Local infection of the skin and subcutaneous tissue, unspecified; T14.8XXD Other injury of unspecified body region, subsequent encounter | CPT/HCPCS: 96365; J0878 ==

== ENCOUNTER 2021-09-27 00:17 | Day surgery (SDC) | payer OTHER ==
[~2021-09-27] VITALS: Ht 190.5 cm; Wt 131.5 kg
== END 2021-09-27 08:45 | disposition home or self-care (01) ==
LOC: ATC 00:17
DX: E11.69 Type 2 diabetes mellitus with other specified complication (principal); M86.671 Other chronic osteomyelitis, right ankle and foot; L08.9 Local infection of the skin and subcutaneous tissue, unspecified; T14.8XXD Other injury of unspecified body region, subsequent encounter; E11.621 Type 2 diabetes mellitus with foot ulcer; L97.514 Non-pressure chronic ulcer of other part of right foot with necrosis of bone; I11.9 Hypertensive heart disease without heart failure; E11.51 Type 2 diabetes mellitus with diabetic peripheral angiopathy without gangrene; I70.213 Atherosclerosis of native arteries of extremities with intermittent claudication, bilateral legs; Z87.891 Personal history of nicotine dependence; Z88.8 Allergy status to other drugs, medicaments and biological substances; Z88.1 Allergy status to other antibiotic agents
CPT/HCPCS: J0878

== ENCOUNTER 2021-09-28 07:29 | Day surgery (SDC) | payer OTHER | END 2021-09-28 09:05 | disposition home or self-care (01) | LOC: ATC 07:29 | DX: E11.69 Type 2 diabetes mellitus with other specified complication (principal); M86.671 Other chronic osteomyelitis, right ankle and foot; T14.8XXD Other injury of unspecified body region, subsequent encounter; L97.514 Non-pressure chronic ulcer of other part of right foot with necrosis of bone; E11.621 Type 2 diabetes mellitus with foot ulcer; L97.509 Non-pressure chronic ulcer of other part of unspecified foot with unspecified severity | CPT/HCPCS: J0878 ==

== ENCOUNTER 2021-09-29 07:38 | Day surgery (SDC) | payer OTHER | END 2021-09-29 08:25 | disposition home or self-care (01) | LOC: ATC 07:38 | DX: E11.69 Type 2 diabetes mellitus with other specified complication (principal); M86.671 Other chronic osteomyelitis, right ankle and foot; E11.621 Type 2 diabetes mellitus with foot ulcer; L97.514 Non-pressure chronic ulcer of other part of right foot with necrosis of bone; L08.9 Local infection of the skin and subcutaneous tissue, unspecified; T14.8XXD Other injury of unspecified body region, subsequent encounter; I11.9 Hypertensive heart disease without heart failure; E11.51 Type 2 diabetes mellitus with diabetic peripheral angiopathy without gangrene; I70.213 Atherosclerosis of native arteries of extremities with intermittent claudication, bilateral legs; Z87.891 Personal history of nicotine dependence; Z88.1 Allergy status to other antibiotic agents; Z88.8 Allergy status to other drugs, medicaments and biological substances | CPT/HCPCS: 96365; J0878 ==

== ENCOUNTER → 2021-09-30 | Outpatient (CLI) | payer OTHER | END | disposition home or self-care (01) | LOC: LAB SHORT 10:40 | DX: M86.171 Other acute osteomyelitis, right ankle and foot (principal); E11.621 Type 2 diabetes mellitus with foot ulcer; L97.514 Non-pressure chronic ulcer of other part of right foot with necrosis of bone; S98.131A Complete traumatic amputation of one right lesser toe, initial encounter; L08.9 Local infection of the skin and subcutaneous tissue, unspecified | CPT/HCPCS: 87070; 87205; 88305; 88311 ==

== ENCOUNTER 2021-10-01 01:15 | Day surgery (SDC) | payer OTHER | END 2021-10-01 14:00 | disposition home or self-care (01) | LOC: ATC 01:15 | DX: E11.69 Type 2 diabetes mellitus with other specified complication (principal); M86.671 Other chronic osteomyelitis, right ankle and foot; L08.9 Local infection of the skin and subcutaneous tissue, unspecified; T14.8XXD Other injury of unspecified body region, subsequent encounter; L97.514 Non-pressure chronic ulcer of other part of right foot with necrosis of bone; E11.621 Type 2 diabetes mellitus with foot ulcer | CPT/HCPCS: J0878 ==

== ENCOUNTER 2021-10-02 01:14 | Day surgery (SDC) | payer OTHER ==
[2021-10-02 12:31] LABS: BASOPHILS ABSOLUTE AUTO 0.04 K/mm3 (0.00-0.23); BASOPHILS PERCENT AUTO 1 % (0-2); EOSINOPHILS PERCENT AUTO 3 % (0-6); Hematocrit 40.8 % (37.0-53.0); Hemoglobin 13.6 g/dL (13.5-17.5); IMMATURE GRAN ABSOLUTE AUTO 0.03 K/mm3 (0.00-0.10); IMMATURE GRAN PERCENT AUTO 0 % (0-1); LYMPHOCYTES ABSOLUTE AUTO 1.88 K/mm3 (0.84-5.20); LYMPHOCYTES PERCENT AUTO 23 % (21-46); MONOCYTES ABSOLUTE AUTO 0.53 K/mm3 (0.16-1.47); MONOCYTES PERCENT AUTO 7 % (4-13); Mean Corpuscular HGB 30.4 pg (26.0-34.0); Mean Corpuscular HGB Conc 33.3 g/dL (31.5-36.5); Mean Corpuscular Volume 91 fL (80-100); NEUTROPHILS ABSOLUTE AUTO 5.36 K/mm3 (1.96-9.15); NEUTROPHILS PERCENT AUTO 67 % (41-73); Platelet Count 236 K/mm3 (150-400); RDW Coefficient Variation 12.5 % (11.7-14.2); RDW Standard Deviation 41.2 fL (35.1-46.3); Red Blood Cell Count 4.48 M/mm3 (4.30-5.90); White Blood Cell Count 8.04 K/mm3 (4.00-11.30)
== END 2021-10-02 11:45 | disposition home or self-care (01) ==
LOC: LAB 01:14 → ATC 01:14
PROVIDERS: Student in an Organized Health Care Education/Training Program
DX: E11.69 Type 2 diabetes mellitus with other specified complication (principal); M86.671 Other chronic osteomyelitis, right ankle and foot; L08.9 Local infection of the skin and subcutaneous tissue, unspecified; T14.8XXD Other injury of unspecified body region, subsequent encounter; L97.514 Non-pressure chronic ulcer of other part of right foot with necrosis of bone; E11.621 Type 2 diabetes mellitus with foot ulcer; L97.509 Non-pressure chronic ulcer of other part of unspecified foot with unspecified severity
CPT/HCPCS: 85025; J0878

== ENCOUNTER 2021-10-03 00:54 | Day surgery (SDC) | payer OTHER | END 2021-10-03 15:48 | disposition home or self-care (01) | LOC: ATC 00:54 | DX: M86.671 Other chronic osteomyelitis, right ankle and foot (principal); E11.621 Type 2 diabetes mellitus with foot ulcer; L97.514 Non-pressure chronic ulcer of other part of right foot with necrosis of bone; L08.9 Local infection of the skin and subcutaneous tissue, unspecified; T14.8XXD Other injury of unspecified body region, subsequent encounter | CPT/HCPCS: 96365; J0878 ==

== ENCOUNTER 2021-10-04 01:34 | Day surgery (SDC) | payer OTHER | END 2021-10-04 08:35 | disposition home or self-care (01) | LOC: ATC 01:34 | DX: E11.69 Type 2 diabetes mellitus with other specified complication (principal); M86.671 Other chronic osteomyelitis, right ankle and foot; L08.9 Local infection of the skin and subcutaneous tissue, unspecified; E11.621 Type 2 diabetes mellitus with foot ulcer; L97.514 Non-pressure chronic ulcer of other part of right foot with necrosis of bone; T14.8XXD Other injury of unspecified body region, subsequent encounter; G25.81 Restless legs syndrome; I10 Essential (primary) hypertension; Z87.891 Personal history of nicotine dependence; Z88.6 Allergy status to analgesic agent; Z88.1 Allergy status to other antibiotic agents; Z88.8 Allergy status to other drugs, medicaments and biological substances; M20.41 Other hammer toe(s) (acquired), right foot | CPT/HCPCS: J0878 ==

== ENCOUNTER 2021-10-05 01:09 | Day surgery (SDC) | payer OTHER | END 2021-10-05 09:36 | disposition home or self-care (01) | LOC: ATC 01:09 | DX: E11.69 Type 2 diabetes mellitus with other specified complication (principal); E11.621 Type 2 diabetes mellitus with foot ulcer; M86.671 Other chronic osteomyelitis, right ankle and foot; L08.9 Local infection of the skin and subcutaneous tissue, unspecified; T14.8XXD Other injury of unspecified body region, subsequent encounter; L97.514 Non-pressure chronic ulcer of other part of right foot with necrosis of bone | CPT/HCPCS: J0878 ==

== ENCOUNTER 2021-10-06 09:03 | Day surgery (SDC) | payer OTHER | END 2021-10-06 09:55 | disposition home or self-care (01) | LOC: ATC 09:03 | DX: E11.621 Type 2 diabetes mellitus with foot ulcer (principal); L97.514 Non-pressure chronic ulcer of other part of right foot with necrosis of bone; E11.69 Type 2 diabetes mellitus with other specified complication; M86.671 Other chronic osteomyelitis, right ankle and foot; T14.8XXD Other injury of unspecified body region, subsequent encounter | CPT/HCPCS: J0878 ==

== ENCOUNTER 2021-10-07 01:38 | Day surgery (SDC) | payer OTHER | END 2021-10-07 09:37 | disposition home or self-care (01) | LOC: ATC 01:38 | DX: E11.69 Type 2 diabetes mellitus with other specified complication (principal); M86.671 Other chronic osteomyelitis, right ankle and foot; L08.9 Local infection of the skin and subcutaneous tissue, unspecified; T14.8XXD Other injury of unspecified body region, subsequent encounter; E11.621 Type 2 diabetes mellitus with foot ulcer; L97.514 Non-pressure chronic ulcer of other part of right foot with necrosis of bone | CPT/HCPCS: J0878 ==

== ENCOUNTER 2021-10-08 01:59 | Day surgery (SDC) | payer OTHER | END 2021-10-08 09:44 | disposition home or self-care (01) | LOC: ATC 01:59 | DX: E11.69 Type 2 diabetes mellitus with other specified complication (principal); M86.671 Other chronic osteomyelitis, right ankle and foot; L08.9 Local infection of the skin and subcutaneous tissue, unspecified; T87.89 Other complications of amputation stump; E11.621 Type 2 diabetes mellitus with foot ulcer; L97.514 Non-pressure chronic ulcer of other part of right foot with necrosis of bone; I10 Essential (primary) hypertension; M24.571 Contracture, right ankle; M21.371 Foot drop, right foot; M20.41 Other hammer toe(s) (acquired), right foot; Z87.891 Personal history of nicotine dependence; Z88.6 Allergy status to analgesic agent; Z88.1 Allergy status to other antibiotic agents; Z88.8 Allergy status to other drugs, medicaments and biological substances | CPT/HCPCS: J0878 ==

== ENCOUNTER 2021-10-10 01:22 | Day surgery (SDC) | payer OTHER | END 2021-10-10 09:50 | disposition home or self-care (01) | LOC: ATC 01:22 | DX: M86.671 Other chronic osteomyelitis, right ankle and foot (principal); L08.9 Local infection of the skin and subcutaneous tissue, unspecified; T14.8XXD Other injury of unspecified body region, subsequent encounter; E11.621 Type 2 diabetes mellitus with foot ulcer; L97.514 Non-pressure chronic ulcer of other part of right foot with necrosis of bone; Z87.891 Personal history of nicotine dependence; M20.41 Other hammer toe(s) (acquired), right foot; S98.131A Complete traumatic amputation of one right lesser toe, initial encounter; X58.XXXA Exposure to other specified factors, initial encounter; E11.51 Type 2 diabetes mellitus with diabetic peripheral angiopathy without gangrene; I70.213 Atherosclerosis of native arteries of extremities with intermittent claudication, bilateral legs; M24.571 Contracture, right ankle; M21.371 Foot drop, right foot | CPT/HCPCS: 96365; J0878 ==

== ENCOUNTER 2021-10-12 04:22 | Day surgery (SDC) | payer OTHER | END 2021-10-12 09:40 | disposition home or self-care (01) | LOC: ATC 04:22 | DX: E11.69 Type 2 diabetes mellitus with other specified complication (principal); M86.671 Other chronic osteomyelitis, right ankle and foot; L08.9 Local infection of the skin and subcutaneous tissue, unspecified; T14.8XXD Other injury of unspecified body region, subsequent encounter; E11.622 Type 2 diabetes mellitus with other skin ulcer; L97.514 Non-pressure chronic ulcer of other part of right foot with necrosis of bone | CPT/HCPCS: J0878 ==

== ENCOUNTER 2021-10-13 02:25 | Day surgery (SDC) | payer OTHER | END 2021-10-13 09:11 | disposition home or self-care (01) | LOC: ATC 02:25 | DX: E11.69 Type 2 diabetes mellitus with other specified complication (principal); L08.9 Local infection of the skin and subcutaneous tissue, unspecified; M86.671 Other chronic osteomyelitis, right ankle and foot; T14.8XXD Other injury of unspecified body region, subsequent encounter; E11.621 Type 2 diabetes mellitus with foot ulcer; L97.514 Non-pressure chronic ulcer of other part of right foot with necrosis of bone | CPT/HCPCS: J0878 ==

== ENCOUNTER 2021-10-14 01:26 | Day surgery (SDC) | payer OTHER | END 2021-10-14 09:47 | disposition home or self-care (01) | LOC: ATC 01:26 | DX: E11.69 Type 2 diabetes mellitus with other specified complication (principal); M86.671 Other chronic osteomyelitis, right ankle and foot; L08.9 Local infection of the skin and subcutaneous tissue, unspecified; T14.8XXD Other injury of unspecified body region, subsequent encounter; E11.621 Type 2 diabetes mellitus with foot ulcer; L97.514 Non-pressure chronic ulcer of other part of right foot with necrosis of bone | CPT/HCPCS: 96365; J0878 ==

== ENCOUNTER 2021-10-15 00:51 | Day surgery (SDC) | payer OTHER | END 2021-10-15 09:55 | disposition home or self-care (01) | LOC: ATC 00:51 | DX: E11.69 Type 2 diabetes mellitus with other specified complication (principal); M86.671 Other chronic osteomyelitis, right ankle and foot; L08.9 Local infection of the skin and subcutaneous tissue, unspecified; T14.8XXD Other injury of unspecified body region, subsequent encounter; E11.621 Type 2 diabetes mellitus with foot ulcer; L97.514 Non-pressure chronic ulcer of other part of right foot with necrosis of bone | CPT/HCPCS: J0878 ==

== ENCOUNTER 2021-10-19 00:40 | Day surgery (SDC) | payer OTHER | END 2021-10-19 10:09 | disposition home or self-care (01) | LOC: ATC 00:40 | DX: E11.69 Type 2 diabetes mellitus with other specified complication (principal); M86.671 Other chronic osteomyelitis, right ankle and foot; L08.9 Local infection of the skin and subcutaneous tissue, unspecified; T14.8XXD Other injury of unspecified body region, subsequent encounter; L97.514 Non-pressure chronic ulcer of other part of right foot with necrosis of bone; E11.621 Type 2 diabetes mellitus with foot ulcer | CPT/HCPCS: J0878 ==

== ENCOUNTER 2021-10-20 09:31 | Day surgery (SDC) | payer OTHER | END 2021-10-20 10:25 | disposition home or self-care (01) | LOC: ATC 09:31 | DX: E11.69 Type 2 diabetes mellitus with other specified complication (principal); M86.671 Other chronic osteomyelitis, right ankle and foot; L08.9 Local infection of the skin and subcutaneous tissue, unspecified; T14.8XXD Other injury of unspecified body region, subsequent encounter; E11.621 Type 2 diabetes mellitus with foot ulcer; L97.514 Non-pressure chronic ulcer of other part of right foot with necrosis of bone | CPT/HCPCS: J0878 ==

== ENCOUNTER 2021-10-21 01:11 | Day surgery (SDC) | payer OTHER | END 2021-10-21 23:05 | disposition home or self-care (01) | LOC: ATC 01:11 | DX: E11.69 Type 2 diabetes mellitus with other specified complication (principal); M86.671 Other chronic osteomyelitis, right ankle and foot; L08.9 Local infection of the skin and subcutaneous tissue, unspecified; T14.8XXD Other injury of unspecified body region, subsequent encounter; E11.621 Type 2 diabetes mellitus with foot ulcer; L97.514 Non-pressure chronic ulcer of other part of right foot with necrosis of bone | CPT/HCPCS: J0878 ==

== ENCOUNTER 2021-10-22 01:21 | Day surgery (SDC) | payer OTHER | END 2021-10-22 09:50 | disposition home or self-care (01) | LOC: ATC 01:21 | DX: E11.69 Type 2 diabetes mellitus with other specified complication (principal); M86.671 Other chronic osteomyelitis, right ankle and foot; E11.621 Type 2 diabetes mellitus with foot ulcer; L08.9 Local infection of the skin and subcutaneous tissue, unspecified; T14.8XXD Other injury of unspecified body region, subsequent encounter; L97.514 Non-pressure chronic ulcer of other part of right foot with necrosis of bone | CPT/HCPCS: J0878 ==

== ENCOUNTER 2021-10-23 00:26 | Day surgery (SDC) | payer OTHER | END 2021-10-23 10:00 | disposition home or self-care (01) | LOC: ATC 00:26 | DX: E11.69 Type 2 diabetes mellitus with other specified complication (principal); M86.671 Other chronic osteomyelitis, right ankle and foot; L08.9 Local infection of the skin and subcutaneous tissue, unspecified; T14.8XXD Other injury of unspecified body region, subsequent encounter; L97.514 Non-pressure chronic ulcer of other part of right foot with necrosis of bone; E11.621 Type 2 diabetes mellitus with foot ulcer | CPT/HCPCS: J0878 ==

== ENCOUNTER 2021-10-25 00:13 | Day surgery (SDC) | payer OTHER | END 2021-10-25 09:35 | disposition home or self-care (01) | LOC: ATC 00:13 | DX: E11.69 Type 2 diabetes mellitus with other specified complication (principal); M86.671 Other chronic osteomyelitis, right ankle and foot; L08.9 Local infection of the skin and subcutaneous tissue, unspecified; T14.8XXD Other injury of unspecified body region, subsequent encounter; E11.621 Type 2 diabetes mellitus with foot ulcer; L97.514 Non-pressure chronic ulcer of other part of right foot with necrosis of bone | CPT/HCPCS: 96365; J0878 ==

== ENCOUNTER 2021-10-26 08:56 | Day surgery (SDC) | payer OTHER ==
[2021-10-27] MEDS ORDERED: HYDCHL50 PO (07:59)
[2021-10-27] MEDS ORDERED: CYCL10 PO (08:01)
[2021-10-27] MEDS ORDERED: Desyrel150 MG PO (08:01)
[2021-10-27] MEDS ORDERED: GABA300 PO (08:01)
== END 2021-10-26 09:47 | disposition home or self-care (01) ==
LOC: ATC 08:56
DX: E11.69 Type 2 diabetes mellitus with other specified complication (principal); M86.671 Other chronic osteomyelitis, right ankle and foot; L08.9 Local infection of the skin and subcutaneous tissue, unspecified; T14.8XXD Other injury of unspecified body region, subsequent encounter; E11.621 Type 2 diabetes mellitus with foot ulcer; L97.514 Non-pressure chronic ulcer of other part of right foot with necrosis of bone
CPT/HCPCS: J0878

== ENCOUNTER 2021-10-27 02:22 | Day surgery (SDC) | payer OTHER ==
[2021-10-27] MEDS ORDERED: HYDCHL50 PO (07:59)
[2021-10-27] MEDS ORDERED: CYCL10 PO (08:01)
[2021-10-27] MEDS ORDERED: Desyrel150 MG PO (08:01)
[2021-10-27] MEDS ORDERED: GABA300 PO (08:01)
== END 2021-10-27 10:10 | disposition home or self-care (01) ==
LOC: ATC 02:22
DX: E11.69 Type 2 diabetes mellitus with other specified complication (principal); M86.671 Other chronic osteomyelitis, right ankle and foot; L08.9 Local infection of the skin and subcutaneous tissue, unspecified; T14.8XXD Other injury of unspecified body region, subsequent encounter; E11.621 Type 2 diabetes mellitus with foot ulcer; L97.514 Non-pressure chronic ulcer of other part of right foot with necrosis of bone
CPT/HCPCS: J0878

== ENCOUNTER 2021-10-27 07:40 | Emergency (ER) | payer OTHER ==
[~2021-10-27] VITALS: Ht 190.5 cm; Wt 133.8 kg
[2021-10-27] MEDS ORDERED: HYDCHL50 PO (07:59)
[2021-10-27] MEDS ORDERED: Desyrel150 MG PO (08:01)
[2021-10-27] MEDS ORDERED: GABA300 PO (08:01)
[2021-10-27] MEDS ORDERED: CYCL10 PO (08:01)
[2021-10-27 08:33] LABS: Source, Urine Foley catheter
[2021-10-27 08:43] LABS: Appearance, Urine Clear (Clear); Bilirubin, Urine Neg (Neg); Blood, Urine 1+ (Neg); Color, Urine Yellow (P-Yellow); Glucose Qualitative, Urine Neg (Neg); Ketones, Urine Neg (Neg); Leukocyte Esterase, Urine Neg (Neg); Nitrite, Urine Neg (Neg); Protein, Urine 1+ (Neg); Urobilinogen, Urine NORM (Normal)
[2021-10-27 08:55] LABS: Bacteria Not Seen /hpf; Squamous Epithelial Cells Rare /hpf (Few); White Blood Cells, Urine 0-2 /hpf (0-5)
== END 2021-10-27 09:08 | disposition home or self-care (01) ==
LOC: ER 07:40
PROVIDERS: Emergency Medicine
DX: N40.1 Benign prostatic hyperplasia with lower urinary tract symptoms (principal); R33.8 Other retention of urine; I10 Essential (primary) hypertension; R73.03 Prediabetes; Z88.1 Allergy status to other antibiotic agents; Z88.2 Allergy status to sulfonamides; Z88.8 Allergy status to other drugs, medicaments and biological substances; Z91.048 Other nonmedicinal substance allergy status; Z79.899 Other long term (current) drug therapy
CPT/HCPCS: 51702; 51798; 81001

== ENCOUNTER 2021-10-28 01:49 | Day surgery (SDC) | payer OTHER ==
[~2021-10-28 01:49] MED LIST changes: +CYCL10 PO; +Desyrel150 MG PO; +GABA300 PO; +HYDCHL50 PO
== END 2021-10-28 09:26 | disposition home or self-care (01) ==
LOC: ATC 01:49
DX: E11.69 Type 2 diabetes mellitus with other specified complication (principal); M86.671 Other chronic osteomyelitis, right ankle and foot; L08.9 Local infection of the skin and subcutaneous tissue, unspecified; T14.8XXD Other injury of unspecified body region, subsequent encounter; E11.621 Type 2 diabetes mellitus with foot ulcer; L97.514 Non-pressure chronic ulcer of other part of right foot with necrosis of bone; Z87.891 Personal history of nicotine dependence
CPT/HCPCS: J0878

== ENCOUNTER 2021-10-29 02:52 | Day surgery (SDC) | payer OTHER | END 2021-10-29 09:42 | disposition home or self-care (01) | LOC: ATC 02:52 | DX: E11.69 Type 2 diabetes mellitus with other specified complication (principal); M86.671 Other chronic osteomyelitis, right ankle and foot; L08.9 Local infection of the skin and subcutaneous tissue, unspecified; T14.8XXD Other injury of unspecified body region, subsequent encounter; E11.621 Type 2 diabetes mellitus with foot ulcer; L97.514 Non-pressure chronic ulcer of other part of right foot with necrosis of bone; I10 Essential (primary) hypertension; Z87.891 Personal history of nicotine dependence | CPT/HCPCS: J0878 ==

== ENCOUNTER 2021-10-31 00:51 | Day surgery (SDC) | payer OTHER | END 2021-10-31 09:50 | disposition home or self-care (01) | LOC: ATC 00:51 | DX: E11.69 Type 2 diabetes mellitus with other specified complication (principal); M86.671 Other chronic osteomyelitis, right ankle and foot; L08.9 Local infection of the skin and subcutaneous tissue, unspecified; T14.8XXD Other injury of unspecified body region, subsequent encounter; E11.621 Type 2 diabetes mellitus with foot ulcer; L97.514 Non-pressure chronic ulcer of other part of right foot with necrosis of bone | CPT/HCPCS: 96365; J0878 ==

== ENCOUNTER → 2022-01-17 | Outpatient (CLI) | payer OTHER ==
[2022-01-17 12:16] LABS: Source, Urine Clean Catch
[2022-01-17 15:20] LABS: Bacteria Few /hpf; Calcium Oxalate Crystals Few /hpf; Red Blood Cells, Urine 25-50 /hpf (0-2); Squamous Epithelial Cells Few /hpf (Few); White Blood Cells, Urine 0-2 /hpf (0-5)
== END | disposition home or self-care (01) ==
LOC: LAB SHORT 11:59
PROVIDERS: Family Medicine
DX: M54.9 Dorsalgia, unspecified (principal)
CPT/HCPCS: 81015

== ENCOUNTER → 2022-05-19 | Outpatient (CLI) | payer OTHER | END | disposition home or self-care (01) | LOC: LAB SHORT 16:02 | DX: N30.01 Acute cystitis with hematuria (principal) | CPT/HCPCS: 87077; 87086; 87186 ==

== ENCOUNTER 2023-05-26 08:23 | Day surgery (SDC) | payer MEDICARE ==
[~2023-05-26] VITALS: Ht 190.5 cm; Wt 130.0 kg
[2023-05-26] VITALS (8 sets, daily range): BP systolic 131–167; BP diastolic 84–102
[~2023-05-26 08:23] MED LIST changes: +Amlodipine Bes2.5 MG PO; +HYDACE10B PO; +MOBIC15 MG PO
--- NOTE | 2023-05-26 12:31 | NUR ---
PT GIVEN COFFEE PER REQUEST. SO AT BEDSIDE.
--- NOTE | 2023-05-26 12:45 | NUR ---
PT GIVEN SANDWICH AND JUICE.
--- NOTE | 2023-05-26 12:58 | NUR ---
SITE SOFT ADN NON-TENDER PER PT. NO BLEEDING NOTED.
--- NOTE | 2023-05-26 14:12 | NUR ---
2cc removed from tr band. no bleeding noted. site soft and non-tender. pt watching tv. so at bedside.
--- NOTE | 2023-05-26 14:16 | NUR ---
tr band fully deflated. no bleeding noted. site soft and non-tender.
--- NOTE | 2023-05-26 15:12 | NUR ---
PT GIVEN DC INSTRUCTIONS AND VERBALIZED UNDERSTANDING. IV OUT. RADAIL SITE SOFT AND NON-TENDER PER PT. NO BLEEDING NOTED. PT CHANGED. CLOTH DOT, ARM BOARD, AND SLING APPLIED. PT TAKEN TO Y VIA WC. TO DRIVE PT HOME.
== END 2023-05-26 16:25 | disposition home or self-care (01) ==
LOC: MHTC 08:23
DX: I25.118 Atherosclerotic heart disease of native coronary artery with other forms of angina pectoris (principal); R06.09 Other forms of dyspnea; R42 Dizziness and giddiness; I10 Essential (primary) hypertension; E78.00 Pure hypercholesterolemia, unspecified; E11.9 Type 2 diabetes mellitus without complications; G47.33 Obstructive sleep apnea (adult) (pediatric); G25.81 Restless legs syndrome; K76.0 Fatty (change of) liver, not elsewhere classified; Z79.899 Other long term (current) drug therapy; Z88.8 Allergy status to other drugs, medicaments and biological substances; Z88.2 Allergy status to sulfonamides
CPT/HCPCS: 76937; 93454; 99152; A9270; C1769; C1887; C1894; J1644; J2250; J3010; J7030; J7050; Q9967

== ENCOUNTER 2023-10-11 20:57 | Emergency (ER) | payer MEDICARE, BC ==
[~2023-10-11] VITALS: Ht 190.5 cm; Wt 130.6 kg
[2023-10-11] MEDS ORDERED: KLOR-CON 1010 ME9 PO (21:21)
[2023-10-11] MEDS ORDERED: FUROSEMIDE20 MG PO (21:22)
[2023-10-11] MEDS ORDERED: OxyCODONE 5 mg/Acetamin 325 mg TABLET PO ONE (21:30)
[2023-10-11 22:48] VITALS: BP 123/64
== END 2023-10-11 22:55 | disposition home or self-care (01) ==
LOC: ER 20:57
DX: S30.1XXA Contusion of abdominal wall, initial encounter (principal); Z95.2 Presence of prosthetic heart valve; Z79.899 Other long term (current) drug therapy
CPT/HCPCS: 76857; 99283-25; A9270

== ENCOUNTER 2023-10-21 22:57 | Emergency (ER) | payer MEDICARE, BC ==
[~2023-10-21] VITALS: Ht 190.5 cm; Wt 131.5 kg
[~2023-10-21 22:57] MED LIST changes: +FUROSEMIDE20 MG PO; +KLOR-CON 1010 ME9 PO
[2023-10-21] MEDS ORDERED: FURO20 PO (23:09)
[2023-10-21] MEDS ORDERED: PRAM.125 PO (23:12)
[2023-10-21] MEDS ORDERED: Norco 10-325 T1 EACH PO (23:13)
[2023-10-21] MEDS ORDERED: NS 1,000 ML IV SCH ×2 (23:35)
[2023-10-22 03:00] VITALS: BP 134/76
== END 2023-10-22 03:00 | disposition home or self-care (01) ==
LOC: ER 22:57
DX: R40.0 Somnolence (principal); E86.0 Dehydration; Z88.8 Allergy status to other drugs, medicaments and biological substances; Z88.2 Allergy status to sulfonamides; Z88.1 Allergy status to other antibiotic agents; Z91.048 Other nonmedicinal substance allergy status; Z79.899 Other long term (current) drug therapy; I10 Essential (primary) hypertension; G47.33 Obstructive sleep apnea (adult) (pediatric)
CPT/HCPCS: 96360; 99284-25; J7030

== ENCOUNTER → 2024-03-14 | Outpatient (CLI) | payer MEDICARE, BC ==
[~2024-03-14] MED LIST changes: +FURO20 PO; +Norco 10-325 T1 EACH PO; +PRAM.125 PO
== END ==
LOC: LAB SHORT 16:00 → LAB 16:00
DX: R30.0 Dysuria (principal)
CPT/HCPCS: 87077; 87086; 87186

== ENCOUNTER → 2025-04-20 | Outpatient (CLI) | payer MEDICARE, BC | LOC: LAB SHORT 17:37 → LAB 17:37 | DX: L89.892 Pressure ulcer of other site, stage 2 (principal); L89.893 Pressure ulcer of other site, stage 3 | CPT/HCPCS: 87070; 87077; 87186; 87205 ==